=== PATIENT | male | born 1965 | race Caucasian/White ===

== ENCOUNTER 2019-11-14 12:25 | Emergency (ER) | payer SELFPAY ==
[~2019-11-14] VITALS: Ht 177.8 cm; Wt 90.9 kg
[2019-11-14 12:42] VITALS: Ht 177.8 cm; Wt 90.9 kg
[2019-11-14] MEDS ORDERED: ALEVE220 MG PO (12:44)
[2019-11-14] MEDS ORDERED: NORCO 7.5-3251 EACH GT ×2 (15:13→16:15)
[2019-11-14] MEDS ORDERED: ZANAFLEX4 MG PO ×2 (15:13→16:15)
[2019-11-14 15:34] VITALS: BP 136/58
== END 2019-11-14 15:35 | disposition home or self-care (01) ==
LOC: D.ER 12:25
DX: S46.812A Strain of other muscles, fascia and tendons at shoulder and upper arm level, left arm, initial encounter (principal); X58.XXXA Exposure to other specified factors, initial encounter; I10 Essential (primary) hypertension

== ENCOUNTER 2019-11-23 15:20 | Emergency (ER) | payer SELFPAY ==
[2019-11-14 12:42] VITALS: BMI 28.7
[~2019-11-23 15:20] MED LIST: ALEVE220 MG PO; NORCO 7.5-3251 EACH GT; ZANAFLEX4 MG PO
== END 2019-11-23 15:34 | disposition left against medical advice (07) ==
LOC: D.ER 15:20
DX: S39.92XA Unspecified injury of lower back, initial encounter (principal)